=== PATIENT | female | born 1985 | race Hispanic/Latino ===

== ENCOUNTER 2019-05-28 10:36 | Emergency (ER) | payer OTHER, SELFPAY ==
[2019-05-28] MEDS ORDERED: MORPHINE 4 MG/ML SYR ONE ×2 (11:18→14:18)
[2019-05-28] MEDS ORDERED: PROMETHAZINE INJ 25 MG/ML AMP ONE (11:18)
[2019-05-28] MEDS ORDERED: TETANUS & DIPHTHERIA TOX,ADULT 0.5 ML VIAL ONE (11:19)
[2019-05-28] MEDS ORDERED: CEFAZOLIN/SWI 1gm 1 GM/10 ML SYR ONE (11:19)
[2019-05-28] MEDS ORDERED: NA CHLORIDE 0.9% 1,000 ML ONE (11:19)
--- NOTE | 2019-05-28 11:58 | RAD REPORT ---
EXAM DESCRIPTION: RAD - Foot Left 3 View - 05/28/2019 11:27 am CLINICAL HISTORY: Left Foot pain FINDINGS: No fracture or dislocation is seen.
[2019-05-28] MEDS ORDERED: LIDOCAINE 1% MPF 30 ML VIAL ONE (13:56)
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
[2019-05-28 15:23] VITALS: BP 132/95; TEMP 98; O2SAT 97
== END 2019-05-28 15:11 | disposition home or self-care (01) ==
LOC: ER 10:36
PROC: 0JQR0ZZ Repair Left Foot Subcutaneous Tissue and Fascia, Open Approach (ICD-10-PCS; principal; 2019-05-28)
DX: S91.312A Laceration without foreign body, left foot, initial encounter (principal); X58.XXXA Exposure to other specified factors, initial encounter; Y93.9 Activity, unspecified; Y92.9 Unspecified place or not applicable; Z23 Encounter for immunization
CPT/HCPCS: 96365; 73630; 90471; 90714; 96375; 99284; 96366; 12004; J2550; J0690; J7030

== ENCOUNTER 2019-06-05 15:46 | Emergency (ER) | payer OTHER, SELFPAY ==
--- NOTE | 2019-06-05 16:20 | ER ---
Nurse's Notes [facility] Name: Angie Hancock Age: 33 yrs Sex: Female : 1985 Arrival Date: 06/05/2019 Time: 15:51 Bed 5 Private MD: Diagnosis: Cellulitis of other parts of limb-left foot Presentation: 06/04 15:59 Chief complaint: Patient states: Stitches to left foot on Sunday last week and it's jl7 red, oozing and painful x 2 days. Coronavirus screen: Patient denies fever greater than 100.4F, cough, shortness of breath, or difficulty breathing. Proceed with normal triage process. Ebola Screen: No symptoms or risks identified at this time. Initial Sepsis Screen: Does the patient meet any 2 criteria? HR > 90 bpm. No. Patient's initial sepsis screen is negative. Does the patient have a suspected source of infection? Yes: Skin breakdown/wound. Risk Assessment: Do you want to hurt yourself or someone else? Patient reports no desire to harm self or others. Onset of symptoms is unknown. 15:59 Method Of Arrival: Ambulatory [facility] 15:59 Acuity: FLOYD 3 jl7 Triage Assessment: 16:02 General: Appears in no apparent distress. uncomfortable, Behavior is calm, cooperative, jl7 appropriate for age. Pain: Complains of pain in left foot Pain currently is 7 out of 10 on a pain scale. 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 - Social history:: Smoking status: Patient reports the use of cigarette tobacco products, Patient/guardian denies using alcohol, street drugs, The patient lives with family. - Family history:: not pertinent. Screenin:24 Abuse screen: Denies threats or abuse. Denies injuries from another. Nutritional hb screening: No deficits noted. Tuberculosis screening: No symptoms or risk factors identified. Fall Risk None identified. Assessment: 16:05 General: Appears uncomfortable, Behavior is calm, cooperative. Pain: Complains of pain aa5 in left foot Pain does not radiate. Pain currently is 7 out of 10 on a pain scale. Quality of pain is described as pressure, throbbing, Pain began 2-3 days ago. Is continuous. Neuro: Level of Consciousness is awake, alert, obeys commands, Oriented to person, place, time, situation. Cardiovascular: Heart tones S1 S2 present Rhythm is regular. Respiratory: Airway is patent Respiratory effort is even, unlabored, Respiratory pattern is regular, symmetrical. GI: No signs and/or symptoms were reported involving the gastrointestinal system. : No signs and/or symptoms were reported regarding the genitourinary system. EENT: No signs and/or symptoms were reported regarding the EENT system. Derm: Skin is pink, warm \T\ dry. Bruising that is green, yellow, on dorsum of left foot Sutures noted to dorsum of left foot and remain intact, no drainage noted. . Musculoskeletal: Range of motion: intact in all extremities, Swelling present in ball of left foot and dorsum of left foot. Vital Signs: 15:59 BP 130 / 78; Pulse 104; Resp 19; Temp 98.9; Pulse Ox 96% ; Weight 54.43 kg (R); Pain jl7 7/10; 16:15 BP 116 / 80; Pulse 90; Resp 18 S; Temp 98.3(O); Pulse Ox 98% on R/A; aa5 ED Course: 15:51 Patient arrived in ED. am2 15:58 Panfilo Preston MD is Attending Physician. ma2 16:02 Triage completed. jl7 16:02 Arm band placed on right wrist. jl7 16:14 Radha Olson, RASHAUN is Primary Nurse. aa5 16:24 Patient has correct armband on for positive identification. Bed in low position. Call hb light in reach. Side rails up X 1. 16:24 No provider procedures requiring assistance completed. Patient did not have IV access hb during this emergency room visit. Administered Medications: 16:24 Drug: Rocephin (cefTRIAXone) 1 grams Route: IM; Site: right gluteus; aa5 16:50 Follow up: Response: No adverse reaction hb 16:24 Drug: [place] 5 mg-325 mg 1 tabs Route: PO; aa5 16:50 Follow up: Response: No adverse reaction hb Outcome: 16:18 Discharge ordered by MD. [email or web address] 16:50 Discharged to home ambulatory, via wheelchair, with crutches. hb 16:50 Condition: stable 16:50 Discharge instructions given to patient, Instructed on discharge instructions, follow up and referral plans. medication usage, wound care, Demonstrated understanding of instructions, follow-up care, medications, wound care, Prescriptions given X 1. 16:50 Patient left the ED. hb Signatures: Radha Olson RN RN aa5 Zohreh Cyr RN RN Nimo Nichole RN RN jl7 Meliza Mtz am2 Panfilo Preston MD MD ma2 Corrections: (The following items were deleted from the chart) 16:16 16:15 Temp 98.3F Oral; aa5 aa5
--- NOTE | 2019-06-05 16:20 | EDPHYS ---
Physician Documentation [facility] Name: Angie Hancock Age: 33 yrs Sex: Female : 1985 Arrival Date: 06/05/2019 Time: 15:51 Bed 5 Private MD: ED Physician Panfilo Presotn HPI: 06/04 16:14 This 33 yrs old Female presents to ER via Ambulatory with complaints of Wound ma2 Infection. 16:14 Associated signs and symptoms: Pertinent negatives: apnea, burning of skin, depression, ma2 diarrhea, shortness of breath, visual hallucinations. Severity of symptoms: At their worst the symptoms were mild in the emergency department the symptoms are unchanged. The patient has not experienced similar symptoms in the past. 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 - Social history:: Smoking status: Patient reports the use of cigarette tobacco products, Patient/guardian denies using alcohol, street drugs, The patient lives with family. - Family history:: not pertinent. ROS: 16:14 Constitutional: Negative for fever, chills, and weight loss. ma2 16:14 All other systems are negative. Exam: 16:14 Constitutional: This is a well developed, well nourished patient who is awake, alert, ma2 and in no acute distress. Head/Face: Normocephalic, atraumatic. Eyes: Pupils equal round and reactive to light, extra-ocular motions intact. Lids and lashes normal. Conjunctiva and sclera are non-icteric and not injected. Cornea within normal limits. Periorbital areas with no swelling, redness, or edema. ENT: Nares patent. No nasal discharge, no septal abnormalities noted. Tympanic membranes are normal and external auditory canals are clear. Oropharynx with no redness, swelling, or masses, exudates, or evidence of obstruction, uvula midline. Mucous membranes moist. Neck: Trachea midline, no thyromegaly or masses palpated, and no cervical lymphadenopathy. Supple, full range of motion without nuchal rigidity, or vertebral point tenderness. No Meningismus. Chest/axilla: Normal chest wall appearance and motion. Nontender with no deformity. No lesions are appreciated. Cardiovascular: Regular rate and rhythm with a normal S1 and S2. No gallops, murmurs, or rubs. Normal PMI, no JVD. No pulse deficits. Respiratory: Lungs have equal breath sounds bilaterally, clear to auscultation and percussion. No rales, rhonchi or wheezes noted. No increased work of breathing, no retractions or nasal flaring. Abdomen/GI: Soft, non-tender, with normal bowel sounds. No distension or tympany. No guarding or rebound. No evidence of tenderness throughout. Back: No spinal tenderness. No costovertebral tenderness. Full range of motion. Female : Normal external genitalia. Skin: Warm, dry with normal turgor. Normal color with no rashes, no lesions, and no evidence of cellulitis. MS/ Extremity: left foot with area of erythema and warmth mild swelling 4x4 cm, no fluctuence, no tenderness, laceration area is dry partially healed no puss, in good order, Pulses equal, no cyanosis. Neurovascular intact. Full, normal range of motion. Neuro: Awake and alert, GCS 15, oriented to person, place, time, and situation. Cranial nerves II-XII grossly intact. Motor strength 5/5 in all extremities. Sensory grossly intact. Cerebellar exam normal. Normal gait. Vital Signs: 15:59 BP 130 / 78; Pulse 104; Resp 19; Temp 98.9; Pulse Ox 96% ; Weight 54.43 kg (R); Pain jl7 7/10; 16:15 BP 116 / 80; Pulse 90; Resp 18 S; Temp 98.3(O); Pulse Ox 98% on R/A; aa5 MDM: 16:09 Patient medically screened. ma2 16:14 Differential diagnosis: cellulitis, no abscess no fracture no contusion. Data reviewed: ma2 vital signs, nurses notes. Counseling: I had a detailed discussion with the patient and/or guardian regarding: the historical points, exam findings, and any diagnostic results supporting the discharge/admit diagnosis, the presence of at least one elevated blood pressure reading (>120/80) during this emergency department visit, the need for outpatient follow up. Response to treatment: the patient's symptoms have markedly improved after treatment. Administered Medications: 16:24 Drug: Rocephin (cefTRIAXone) 1 grams Route: IM; Site: right gluteus; aa5 16:50 Follow up: Response: No adverse reaction hb 16:24 Drug: [place] 5 mg-325 mg 1 tabs Route: PO; aa5 16:50 Follow up: Response: No adverse reaction hb Disposition: 06/05/19 16:18 Discharged to Home. Impression: Cellulitis of other parts of limb - left foot. - Condition is Stable. - Discharge Instructions: Cellulitis, Adult, [id number]. - Prescriptions for Clindamycin HCl 300 mg Oral Capsule - take 1 capsule by ORAL route every 6 hours for 10 days; 40 capsule. - Medication Reconciliation Form, Thank You Letter, Antibiotic Education, Prescription Opioid Use form. - Follow up: Private Physician; When: Tomorrow; Reason: Continuance of care. Signatures: Radha Olson RN RN aa5 Zohreh Cyr RN RN Nimo Nichole RN RN jl7 Panfilo Preston MD MD nv2 Corrections: (The following items were deleted from the chart) 16:19 16:18 06/05/2019 16:18 Discharged to Home. Impression: Cellulitis of other parts of nv2 limb. Condition is Stable. Forms are Medication Reconciliation Form, Thank You Letter, Antibiotic Education, Prescription Opioid Use. Follow up: Private Physician; When: Tomorrow; Reason: Continuance of care. [facility] 16:50 16:19 06/05/2019 16:18 Discharged to Home. Impression: Cellulitis of other parts of limb - left foot. Condition is Stable. Forms are Medication Reconciliation Form, Thank You Letter, Antibiotic Education, Prescription Opioid Use. Follow up: Private Physician; When: Tomorrow; Reason: Continuance of care. ma2
[2019-06-05] MEDS ORDERED: CEFTRIAXONE 1000 MG/VIAL ONE (16:25)
[2019-06-05] MEDS ORDERED: LIDOCAINE 1% MPF 2 ML AMPULE ONE (16:25)
[2019-06-05] MEDS ORDERED: HYDROCODONE/APAP 5/325 MG TAB ONE (16:27)
[2019-06-05 16:58] VITALS: BP 116/80; TEMP 98.3; O2SAT 98
== END 2019-06-05 16:50 | disposition home or self-care (01) ==
LOC: ER 15:46
DX: L03.116 Cellulitis of left lower limb (principal); Z72.0 Tobacco use
CPT/HCPCS: 96372; 99283; J2001